=== PATIENT | female | born 1990 | race Caucasian/White ===

== ENCOUNTER 2016-11-17 03:58 | Emergency (ER) | payer BC, OTHER ==
[2016-11-17 04:07] VITALS: BP 119/88; PULSE 83; RESP 16; TEMP 98.1
[2016-11-17] MEDS ORDERED: SODIUM CHLORIDE 0.9% 1,000 ML IV STA ×2 (04:19)
[2016-11-17] MEDS ORDERED: ONDANSETRON 4 MG/2 ML VIAL IVP STA (04:20)
--- NOTE | 2016-11-17 04:22 | ED ---
SOB HPI - General Chief Complaint: Shortness of Breath Stated Complaint: vomiting,back pain Time Seen by Provider: 11/17/16 04:04 Source: patient, family, RN notes reviewed Mode of arrival: ambulatory Limitations: no limitations - History of Present Illness Initial Comments: This is a 26-year-old female with a history of anxiety states she woke up around 1 AM with nausea vomiting shortness of breath and right CVA area pain. She also states she has some pain over the right side of her orthodox she states she's thrown up at least 10 times she also states she's been urinating a lot since he got up. She does states she was also here couple weeks ago for anxiety. She denies any fevers chills or sweats she denies any chance of . She is a smoker I did counseling case manager her on the risks of smoking and the side effects thereof. MD Complaint: shortness of breath, anxiety - Related Data Previous Rx's Medication Instructions Recorded LORazepam [Ativan] 0.5 mg PO TID PRN #15 tab 06/12/16 Meclizine [Antivert] 25 mg PO TID #30 tab 11/04/16 Ondansetron Odt [Zofran Odt] 4 mg PO Q8HR PRN #7 tab 11/17/16 Allergies Allergy/AdvReac Type Severity Reaction Status Date / Time No Known Allergies Allergy Verified 11/17/16 04:06 Review of Systems ROS Statement: Those systems with pertinent positive or pertinent negative responses have been documented in the HPI. ROS Other: All systems not noted in ROS Statement are negative. Past Medical History Past Medical History: No Reported History History of Any Multi-Drug Resistant Organisms: None Reported Past Surgical History: Appendectomy Past Psychological History: No Psychological Hx Reported Smoking Status: Current every day smoker Past Alcohol Use History: Rare Past Drug Use History: Marijuana General Exam - General Exam Comments Initial Comments: This is a well-developed well-nourished awake alert oriented 3 female Limitations: no limitations General appearance: alert, anxious Head exam: Present: atraumatic, normocephalic, normal inspection Eye exam: Present: normal appearance, PERRL, EOMI. Absent: scleral icterus, conjunctival injection, periorbital swelling ENT exam: Present: mucous membranes dry Neck exam: Present: normal inspection. Absent: tenderness, meningismus, lymphadenopathy Respiratory exam: Present: normal lung sounds bilaterally. Absent: respiratory distress, wheezes, rales, rhonchi, stridor Cardiovascular Exam: Present: regular rate, normal rhythm, normal heart sounds. Absent: systolic murmur, diastolic murmur, rubs, gallop, clicks GI/Abdominal exam: Present: soft, normal bowel sounds. Absent: distended, tenderness, guarding, rebound, rigid Extremities exam: Present: normal inspection, full ROM, normal capillary refill. Absent: tenderness, pedal edema, joint swelling, calf tenderness Back exam: Present: normal inspection Neurological exam: Present: alert, oriented X3, CN II-XII intact Psychiatric exam: Present: normal affect, normal mood Skin exam: Present: warm, dry, intact, normal color. Absent: rash Course Vital Signs 11/17/16 04:00 Temperature 98.1 F Pulse Rate 83 Respiratory 16 Rate Blood Pressure 119/88 O2 Sat by Pulse 99 Oximetry Medical Decision Making - Medical Decision Making The patient currently asymptomatic and will be discharged. - Lab Data Result diagrams: 11/17/16 04:30 11/17/16 04:30 Lab Results 11/17/16 11/17/16 11/17/16 Range/Units 04:20 04:20 04:30 WBC (3.8-10.6) k/uL RBC (3.80-5.40) m/uL Hgb (11.4-16.0) gm/dL Hct (34.0-46.0) % MCV (80.0-100.0) fL MCH (25.0-35.0) pg MCHC (31.0-37.0) g/dL RDW (11.5-15.5) % Plt Count (150-450) k/uL Neutrophils % % Lymphocytes % % Monocytes % % Eosinophils % % Basophils % % Neutrophils # (1.3-7.7) k/uL Lymphocytes # (1.0-4.8) k/uL Monocytes # (0-1.0) k/uL Eosinophils # (0-0.7) k/uL Basophils # (0-0.2) k/uL PT (9.0-12.0) sec INR (<1.1) APTT (22.0-30.0) sec Sodium (137-145) mmol/L Potassium (3.5-5.1) mmol/L Chloride (98-107) mmol/L Carbon Dioxide (22-30) mmol/L Anion Gap mmol/L BUN (7-17) mg/dL Creatinine (0.52-1.04) mg/dL Est GFR (MDRD) Af Amer (>60 ml/min/1.73 sqM) Est GFR (MDRD) Non-Af (>60 ml/min/1.73 sqM) Glucose (74-99) mg/dL Calcium (8.4-10.2) mg/dL Magnesium (1.6-2.3) mg/dL Total Bilirubin (0.2-1.3) mg/dL AST (14-36) U/L ALT (9-52) U/L Alkaline Phosphatase (38-126) U/L Total Creatine Kinase 72 (30-135) U/L CK-MB (CK-2) 0.4 (0.0-2.4) ng/mL CK-MB (CK-2) Rel Index 0.6 Troponin I <0.012 (0.000-0.034) ng/mL Total Protein (6.3-8.2) g/dL Albumin (3.5-5.0) g/dL Urine Color Light Yellow Urine Appearance Cloudy H (Clear) Urine pH 7.5 (5.0-8.0) Ur Specific [place] 1.006 (1.001-1.035) Urine Protein Negative (Negative) Urine Glucose (UA) Negative (Negative) Urine Ketones Negative (Negative) Urine Blood Negative (Negative) Urine Nitrate Negative (Negative) Urine Bilirubin Negative (Negative) Urine Urobilinogen <2.0 (<2.0) mg/dL Ur Leukocyte Esterase Small H (Negative) Urine RBC <1 (0-5) /hpf Urine WBC 10 H (0-5) /hpf Ur Squamous Epith Cells 5 H (0-4) /hpf Urine Bacteria Rare H (None) /hpf Urine HCG, Qual Not Detected (Not Detectd) 11/17/16 11/17/16 11/17/16 Range/Units 04:30 04:30 04:30 WBC 6.8 (3.8-10.6) k/uL RBC 4.74 (3.80-5.40) m/uL Hgb 14.8 (11.4-16.0) gm/dL Hct 42.2 (34.0-46.0) % MCV 88.9 (80.0-100.0) fL MCH 31.1 (25.0-35.0) pg MCHC 35.0 (31.0-37.0) g/dL RDW 12.1 (11.5-15.5) % Plt Count 296 (150-450) k/uL Neutrophils % 68 % Lymphocytes % 23 % Monocytes % 5 % Eosinophils % 1 % Basophils % 1 % Neutrophils # 4.6 (1.3-7.7) k/uL Lymphocytes # 1.6 (1.0-4.8) k/uL Monocytes # 0.3 (0-1.0) k/uL Eosinophils # 0.1 (0-0.7) k/uL Basophils # 0.0 (0-0.2) k/uL PT 11.3 (9.0-12.0) sec INR 1.1 (<1.1) APTT 25.0 (22.0-30.0) sec Sodium 143 (137-145) mmol/L Potassium 4.2 (3.5-5.1) mmol/L Chloride 104 (98-107) mmol/L Carbon Dioxide 27 (22-30) mmol/L Anion Gap 12 mmol/L BUN 13 (7-17) mg/dL Creatinine 0.60 (0.52-1.04) mg/dL Est GFR (MDRD) Af Amer >60 (>60 ml/min/1.73 sqM) Est GFR (MDRD) Non-Af >60 (>60 ml/min/1.73 sqM) Glucose 101 H (74-99) mg/dL Calcium 9.8 (8.4-10.2) mg/dL Magnesium 2.0 (1.6-2.3) mg/dL Total Bilirubin 0.5 (0.2-1.3) mg/dL AST 21 (14-36) U/L ALT 35 (9-52) U/L Alkaline Phosphatase 43 (38-126) U/L Total Creatine Kinase (30-135) U/L CK-MB (CK-2) (0.0-2.4) ng/mL CK-MB (CK-2) Rel Index Troponin I (0.000-0.034) ng/mL Total Protein 7.5 (6.3-8.2) g/dL Albumin 4.8 (3.5-5.0) g/dL Urine Color Urine Appearance (Clear) Urine pH (5.0-8.0) Ur Specific [place] (1.001-1.035) Urine Protein (Negative) Urine Glucose (UA) (Negative) Urine Ketones (Negative) Urine Blood (Negative) Urine Nitrate (Negative) Urine Bilirubin (Negative) Urine Urobilinogen (<2.0) mg/dL Ur Leukocyte Esterase (Negative) Urine RBC (0-5) /hpf Urine WBC (0-5) /hpf Ur Squamous Epith Cells (0-4) /hpf Urine Bacteria (None) /hpf Urine HCG, Qual (Not Detectd) - EKG Data -: EKG Interpreted by Me EKG shows normal: sinus rhythm, axis, intervals (Normal sinus rhythm a rate of 65. Interval 164 QRS duration 100 QT/QTC of 392/[address]-T wave changes.) , QRS complexes, ST-T waves Rate: normal - Radiology Data Radiology results: report reviewed (I did review the x-ray report no acute findings.), image reviewed Disposition Clinical Impression: Acute gastritis Disposition: HOME SELF-CARE Condition: Good Instructions: Gastritis (ED) Prescriptions: Ondansetron Odt [Zofran Odt] 4 mg PO Q8HR PRN #7 tab PRN Reason: Nausea
[2016-11-17 05:02] LABS: Basophils % (A) 1 %; CH 32.3; CHCM 36.5; Eosinophils # (A) 0.1 k/uL (0-0.7); Eosinophils % (A) 1 %; HCT 42.2 % (34.0-46.0); HGB 14.8 gm/dL (11.4-16.0); Luc # (Auto) 0.15; Luc % (Auto) 2; Lymphocytes # (A) 1.6 k/uL (1.0-4.8); Lymphocytes % (A) 23 %; MCH 31.1 pg (25.0-35.0); MCV 88.9 fL (80.0-100.0); Monocytes # (A) 0.3 k/uL (0-1.0); Monocytes % (A) 5 %; Neutrophils # (A) 4.6 k/uL (1.3-7.7); Neutrophils % (A) 68 %; RBC 4.74 m/uL (3.80-5.40); RDW 12.1 % (11.5-15.5); WBC 6.8 k/uL (3.8-10.6); WBC (Perox) 6.72
[2016-11-17 05:02] LABS: Appearance,Urine Cloudy (Clear); Bacteria,Urine Rare /hpf; Bilirubin,Urine Negative (Negative); Glucose,Urine (UA) Negative (Negative); Ketones,Urine Negative (Negative); Leukocyte Esterase,Urine Small (Negative); Nitrite,Urine Negative (Negative); PH, Urine 7.5 (5.0-8.0); Particle Count 2053; Protein,Urine Negative (Negative); RBC,Urine <1 /hpf (0-5); Specific Gravity,Urine 1.006 (1.001-1.035); Squamous Epithelial Cell,Urine 5 /hpf (0-4); UA Billing (MACRO vs. MICRO) MICRO; Urobilinogen,Urine <2.0 mg/dL (<2.0); WBC,Urine 10 /hpf (0-5)
[2016-11-17 05:09] LABS: ALT 35 U/L (9-52); AST 21 U/L (14-36); Alkaline Phosphatase 43 U/L (38-126); Anion Gap 12 mmol/L; Blood Urea Nitrogen 13 mg/dL (7-17); Calcium 9.8 mg/dL (8.4-10.2); Carbon Dioxide 27 mmol/L (22-30); Chloride 104 mmol/L (98-107); Glucose 101 mg/dL (74-99); INR 1.1 (<1.1); Non-African American GFR(MDRD) >60 (>60 ml/min/1.73 sqM); Potassium 4.2 mmol/L (3.5-5.1); Prothrombin Time 11.3 sec (9.0-12.0); Sodium 143 mmol/L (137-145); Total Bilirubin 0.5 mg/dL (0.2-1.3); Total Protein 7.5 g/dL (6.3-8.2)
[2016-11-17 05:22] LABS: Creatine Kinase 72 U/L (30-135)
[2016-11-17 05:36] LABS: Creatine Kinase MB 0.4 ng/mL (0.0-2.4); Troponin I <0.012 ng/mL (0.000-0.034)
--- NOTE | 2016-11-17 05:40 | XR ---
EXAMINATION TYPE: XR chest 2V DATE OF EXAM: 11/17/2016 5:10 AM COMPARISON: 06/12/2016 HISTORY: Difficulty breathing TECHNIQUE: Frontal and lateral views of the chest are obtained. FINDINGS: Heart and mediastinum are normal. Lungs are clear. Diaphragm is normal. Bony thorax is int act. There is no sign of a pneumothorax. IMPRESSION: Normal chest no change.
== END 2016-11-17 06:02 | disposition home or self-care (01) ==
LOC: EC 03:58
DX: K29.00 Acute gastritis without bleeding (principal); R11.2 Nausea with vomiting, unspecified; F41.9 Anxiety disorder, unspecified; R06.02 Shortness of breath; F17.200 Nicotine dependence, unspecified, uncomplicated
CPT/HCPCS: 99285; 96374; 96361; 36415; 93005; 80053; 82550; 82553; 83735; 84484; 85025; 85610; 85730; 81001; 81025; 71020; J2405

== ENCOUNTER 2017-01-12 19:26 | Emergency (ER) | payer BC, OTHER ==
--- NOTE | 2017-01-12 19:50 | ED ---
Female Urogenital HPI - General Chief complaint: Urogenital Stated complaint: Female Time Seen by Provider: 01/12/17 19:39 Source: patient, RN notes reviewed, old records reviewed Mode of arrival: ambulatory Limitations: no limitations - History of Present Illness Initial comments: Patient is a 26-year-old female with chief complaint of lower pelvic pain starting approximately 45 minutes ago. Patient reports that she was having sexual intercourse with her boyfriend. Patient reports that soon as he started to have intercourse she noticed a sharp pain in her vagina and feels like it is radiating towards her rectum. She denies any anal intercourse or insertion of foreign bodies. Patient reports that she's never had a pain like this before. Patient reports it is difficult for her to urinate. She states earlier today she did notice some white milky discharge which is abnormal for her. Patient states that she's had normal bowel movements and denies any constipation. She states that she feels a lower cramping pain. She denies any blood or sensation of tearing. Last Menstrual Period: 12/14/16 - Related Data Home Medications Medication Instructions Recorded Confirmed Penicillin V Potassium [Pen Vee K] 500 mg PO QID 01/12/17 01/12/17 Allergies Allergy/AdvReac Type Severity Reaction Status Date / Time No Known Allergies Allergy Verified 01/12/17 19:56 Review of Systems ROS Statement: Those systems with pertinent positive or pertinent negative responses have been documented in the HPI. ROS Other: All systems not noted in ROS Statement are negative. Past Medical History Past Medical History: No Reported History Additional Past Medical History / Comment(s): HPV + with precancerous cells. History of Any Multi-Drug Resistant Organisms: None Reported Past Surgical History: Appendectomy Past Psychological History: No Psychological Hx Reported Smoking Status: Current every day smoker Past Alcohol Use History: Rare Past Drug Use History: Marijuana General Exam - General Exam Comments Initial Comments: Patient is a 26-year-old female. Patient does not appear to be in any acute distress. Limitations: no limitations General appearance: alert, in no apparent distress Head exam: Present: atraumatic, normocephalic, normal inspection Eye exam: Present: normal appearance, PERRL, EOMI. Absent: scleral icterus, conjunctival injection, periorbital swelling ENT exam: Present: normal exam, normal oropharynx, mucous membranes moist, TM's normal bilaterally Neck exam: Present: normal inspection. Absent: tenderness, meningismus, lymphadenopathy Respiratory exam: Present: normal lung sounds bilaterally. Absent: respiratory distress, wheezes, rales, rhonchi, stridor Cardiovascular Exam: Present: regular rate, normal rhythm, normal heart sounds. Absent: systolic murmur, diastolic murmur, rubs, gallop, clicks GI/Abdominal exam: Present: soft, normal bowel sounds. Absent: distended, tenderness, guarding, rebound, rigid Rectal exam: Present: normal inspection, normal rectal tone. Absent: decreased rectal tone, heme (-) stool, heme (+) stool, black stool, bloody stool, fecal impaction, hemorrhoids External exam: Present: normal external exam Speculum exam: Present: normal speculum exam, vaginal discharge (Scant white vaginal discharge.), cervical discharge. Absent: vaginal bleeding, foreign body , tissue, laceration, other By manual exam: Present: cervical motion tenderness. Absent: normal by manual exam, adnexal tenderness, adnexal mass, uterine enlargement, uterine tenderness Extremities exam: Present: normal inspection, full ROM, normal capillary refill. Absent: tenderness, pedal edema, joint swelling, calf tenderness Back exam: Present: normal inspection Neurological exam: Present: alert, oriented X3, CN II-XII intact Psychiatric exam: Present: normal affect, normal mood Skin exam: Present: warm, dry, intact, normal color. Absent: rash Course Vital Signs 01/12/17 01/12/17 01/12/17 19:31 21:06 22:42 Temperature 97.8 F 98.1 F Pulse Rate 104 H 81 74 Respiratory 18 16 16 Rate Blood Pressure 143/90 128/76 121/69 O2 Sat by Pulse 99 97 97 Oximetry Medical Decision Making - Medical Decision Making Patient is a 26-year-old female chief complaint of a acute onset of lower pelvic pain while having intercourse a proximally 45 minutes prior to arrival. She states that if he leaves difficult for her to urinate. She states that there is some burning with urination. She reports that she did have some scant white vaginal discharge earlier today which is abnormal for her. She reports there is a possibility of sexually transmitted infection. Patient's REMARKETING REP is Dr. Barrientos. Patient's vaginal exam did show some significant white discharge. Patient will be treated with Rocephin and azithromycin. Patient advised that she will be contacted in 48 hours if this is positive. Patient was significantly tender over the cervix. I will order a transvaginal ultrasound to ensure is no evidence of ovarian torsion or cyst. Ultrasound did show evidence of left ovarian cysts and right sided ovarian follicles. No evidence of ovarian torsion. Patient did have a small amount of free fluid within the pelvis. Is likely the patient could've ruptured a cyst. Patient was given an IM Toradol and a starter pack for Tylenol 3 for pain. She reports that she's feeling much better at this time. I did discuss that she has been treated for some transmitted infection and to avoid sexual intercourse and the next 2 weeks. 2 Vicryl sexual partners to be treated as well. Patient understands treatment plan will comply. Return parameters were discussed. - Lab Data Lab Results 01/12/17 01/12/17 01/12/17 Range/Units 19:50 19:50 20:10 Urine Color Yellow Urine Appearance Turbid H (Clear) Urine pH 8.5 H (5.0-8.0) Ur Specific [place] 1.016 (1.001-1.035) Urine Protein Trace H (Negative) Urine Glucose (UA) Negative (Negative) Urine Ketones Negative (Negative) Urine Blood Negative (Negative) Urine Nitrate Negative (Negative) Urine Bilirubin Negative (Negative) Urine Urobilinogen 3.0 (<2.0) mg/dL Ur Leukocyte Esterase Small H (Negative) Urine WBC 5 (0-5) /hpf Ur Squamous Epith Cells 15 H (0-4) /hpf Amorphous Sediment Moderate H (None) /hpf Urine Mucus Rare H (None) /hpf Urine HCG, Qual Not Detected (Not Detectd) Trichomonas Ag (Rapid) Negative (Negative) - Radiology Data Radiology results: report reviewed Functional left ovarian cyst. The small right ovarian follicles. Small amount of free fluid. No evidence for torsion. Disposition Clinical Impression: Pelvic pain, Left ovarian cyst, Vaginal discharge Disposition: HOME SELF-CARE Condition: Good Instructions: Ovarian Cyst (ED), Vaginal Discharge (ED) Additional Instructions: Patient advised follow-up with REMARKETING REP. Return to emergency department if any alarming signs or symptoms occur. Take Motrin Tylenol for pain. Yet Referrals: Raven Ryan MD [Primary Care Provider] - 1-2 days Florencio Ye DO [Doctor of Osteopathic Medicine] - 1-2 days Time of Disposition: 22:20
[2017-01-12] MEDS ORDERED: KETOROLAC 60 MG/2 ML VIAL IM STA (20:07)
[2017-01-12] MEDS ORDERED: ACET/COD 300 MG/30 MG STARTER PACK 6 TAB BTL PO STA (20:08)
[2017-01-12] MEDS ORDERED: AZITHROMYCIN 500 MG TAB PO STA (20:10)
[2017-01-12] MEDS ORDERED: cefTRIAXone 1,000 MG VIAL (IM USE) IM STA (20:16)
[2017-01-12 21:07] VITALS: RESP 16
--- NOTE | 2017-01-12 21:49 | US ---
EXAMINATION TYPE: US transvaginal DATE OF EXAM: 01/12/2017 9:19 PM COMPARISON: NONE CLINICAL HISTORY: Pain. postcoidal pain TECHNIQUE: Transvaginal (TV) Date of LMP: 12/14/2016, EXAM MEASUREMENTS: Uterus: 9.5 x 5.7 x 5.1 cm Endometrial Stripe: 1.0 cm Right Ovary: 3.4 x 2.2 x 1.9 cm Left Ovary: 4.4 x 3.5 x 2.9 cm Findings: 1. Uterus: Anteverted wnl 2. Endometrium: wnl 3. Right Ovary: follicles 4. Left Ovary: corpus luteum = 3.0 x 2.7 x 1.8 cm Spectral, color and waveform doppler imaging shows good arterial and venous flow within the ovaries ; there is no evidence for ovarian torsion. 5. Bilateral Adnexa: wnl 6. Posterior cul-de-sac: free fluid Cervix- wnl IMPRESSION: Functional left ovarian cyst. Small right ovarian follicles. Small amount of free fluid. No evidence for torsion.
[2017-01-12 22:11] LABS: Amorphous Sediment,Urine Moderate /hpf; Appearance,Urine Turbid (Clear); Bilirubin,Urine Negative (Negative); Glucose,Urine (UA) Negative (Negative); Ketones,Urine Negative (Negative); Leukocyte Esterase,Urine Small (Negative); Mucus,Urine Rare /hpf; Nitrite,Urine Negative (Negative); PH, Urine 8.5 (5.0-8.0); Particle Count 21650; Protein,Urine Trace (Negative); Specific Gravity,Urine 1.016 (1.001-1.035); Squamous Epithelial Cell,Urine 15 /hpf (0-4); UA Billing (MACRO vs. MICRO) MICRO; WBC,Urine 5 /hpf (0-5)
[2017-01-12 22:43] VITALS: BP 121/69; PULSE 74; TEMP 98.1
[2017-01-14 12:14] LABS: Chlamydia/GC Source Vaginal
== END 2017-01-12 22:42 | disposition home or self-care (01) ==
LOC: EC 19:26
DX: N83.202 Unspecified ovarian cyst, left side (principal); N89.8 Other specified noninflammatory disorders of vagina; R30.0 Dysuria; F17.200 Nicotine dependence, unspecified, uncomplicated
CPT/HCPCS: 87591; 87491; 81001; 81025; 87808; 87070; 87086; 87205; 76830; 96372; 99284; J0696; J1885

== ENCOUNTER 2017-10-07 13:25 | Emergency (ER) | payer BC, OTHER ==
[2017-10-07 13:38] VITALS: RESP 18
[2017-10-07] MEDS ORDERED: ALPRAZolam 0.25 MG TAB PO STA (14:21)
[2017-10-07] MEDS ORDERED: SODIUM CHLORIDE 0.9% 1,000 ML IV ONE (14:21)
--- NOTE | 2017-10-07 14:39 | ED ---
General Adult HPI - General Chief complaint: Neuro Symptoms/Deficit Stated complaint: Rt sided numbness Time Seen by Provider: 10/07/17 13:57 Source: patient Mode of arrival: ambulatory Limitations: no limitations - History of Present Illness Initial comments: patient is a 27-year-old female presents with a chief complaint of right arm tingling and lip tingling. Patient states that the onset was 2 hours ago when she was washing dishes in her kitchen. Patient cannot think of any inciting incidences. There are no aggravating or alleviating factors. Timing is constant. The patient states that her symptomatology has not changed since onset. The patient does not have a notable past medical history. She states that she has had anxiety before but never like this. She also states that there is nothing that would make her more anxious today. - Related Data Previous Rx's Medication Instructions Recorded Cyclobenzaprine [Flexeril] 10 mg PO TID #10 tab 10/07/17 Allergies Allergy/AdvReac Type Severity Reaction Status Date / Time No Known Allergies Allergy Verified 10/07/17 13:42 Review of Systems ROS Statement: Those systems with pertinent positive or pertinent negative responses have been documented in the HPI. ROS Other: All systems not noted in ROS Statement are negative. Constitutional: Denies: fever, chills Eyes: Denies: vision change ENT: Denies: ear pain, throat pain Respiratory: Denies: dyspnea Cardiovascular: Denies: chest pain Endocrine: Denies: fatigue Gastrointestinal: Denies: abdominal pain, nausea, vomiting Genitourinary: Denies: dysuria Musculoskeletal: Denies: back pain Skin: Denies: rash, lesions Neurological: Reports: paresthesias Past Medical History Past Medical History: No Reported History Additional Past Medical History / Comment(s): HPV + with precancerous cells. History of Any Multi-Drug Resistant Organisms: None Reported Past Surgical History: Appendectomy Past Psychological History: No Psychological Hx Reported Smoking Status: Current every day smoker Past Alcohol Use History: Rare Past Drug Use History: None Reported General Exam Limitations: no limitations General appearance: alert, in no apparent distress Head exam: Present: atraumatic, normocephalic Eye exam: Present: PERRL, EOMI. Absent: scleral icterus ENT exam: Present: normal oropharynx, mucous membranes moist Neck exam: Present: normal inspection. Absent: tenderness, meningismus Respiratory exam: Present: normal lung sounds bilaterally Cardiovascular Exam: Present: regular rate, normal rhythm GI/Abdominal exam: Present: soft. Absent: distended, tenderness Rectal exam: Present: deferred Extremities exam: Present: normal inspection, full ROM, other (patient has subjective tingling of the right upper extremity. pulses are equal bilaterally) . Absent: tenderness Back exam: Present: normal inspection Neurological exam: Present: alert, oriented X3, CN II-XII intact, normal gait, motor sensory deficit (patient is somewhat weaker with scientific programmer strength on the right arm, elbow flexion and extension are 5 out of 5 strength.) Psychiatric exam: Present: normal affect, normal mood Skin exam: Present: warm, dry, intact Course Vital Signs 10/07/17 13:35 Temperature 97.6 F Pulse Rate 88 Respiratory 18 Rate Blood Pressure 133/81 O2 Sat by Pulse 99 Oximetry Medical Decision Making - Medical Decision Making patient presents with a chief complaint of right upper extremity tingling and perioral tingling. On initial evaluation, patient appears comfortable and stable. Vital signs are within normal limits. Patient's neurologic exam is nonfocal except for mild strength decreased on the right hand. Strength testing of the upper extremities otherwise is equal and symmetric bilaterally. Patient does not have any cerebellar dysfunction. Romberg is negative, rapid alternating motion is negative. At this time, etiology such as stroke seem to be much less likely. We'll check basic labs to rule out any electrolyte abnormalities, infectious process. We'll send a serum test. 3:29 PM Lab evaluation this patient is unremarkable. Urinalysis did not show any evidence of infection. test is negative. A letter was appeared within normal limits. On reevaluation, patient states that she is still having some tingling in her right arm. Repeat neuro examination shows improved scientific programmer strength in the right hand. Strength is now equal bilaterally. I discussed the results and findings with the patient. I discussed she needs follow-up with her primary care physician or return to the emergency department if symptoms worsen or change. She was given exposed signs and symptoms that should prompt return visit to the emergency department. Patient is agreeable with current care plan - Lab Data Result diagrams: 10/07/17 14:45 10/07/17 14:45 Lab Results 10/07/17 10/07/17 10/07/17 Range/Units 14:45 14:45 14:45 WBC 8.3 (3.8-10.6) k/uL RBC 5.16 (3.80-5.40) m/uL Hgb 15.6 (11.4-16.0) gm/dL Hct 45.8 (34.0-46.0) % MCV 88.7 (80.0-100.0) fL MCH 30.3 (25.0-35.0) pg MCHC 34.1 (31.0-37.0) g/dL RDW 13.6 (11.5-15.5) % Plt Count 249 (150-450) k/uL Neutrophils % 77 % Lymphocytes % 15 % Monocytes % 5 % Eosinophils % 1 % Basophils % 0 % Neutrophils # 6.4 (1.3-7.7) k/uL Lymphocytes # 1.3 (1.0-4.8) k/uL Monocytes # 0.4 (0-1.0) k/uL Eosinophils # 0.1 (0-0.7) k/uL Basophils # 0.0 (0-0.2) k/uL Sodium 140 (137-145) mmol/L Potassium 4.2 (3.5-5.1) mmol/L Chloride 105 (98-107) mmol/L Carbon Dioxide 23 (22-30) mmol/L Anion Gap 12 mmol/L BUN 13 (7-17) mg/dL Creatinine 0.65 (0.52-1.04) mg/dL Est GFR (MDRD) Af Amer >60 (>60 ml/min/1.73 sqM) Est GFR (MDRD) Non-Af >60 (>60 ml/min/1.73 sqM) Glucose 89 (74-99) mg/dL Calcium 9.8 (8.4-10.2) mg/dL HCG, Qual Not Detected Urine Color Light Yellow Urine Appearance Clear (Clear) Urine pH 5.0 (5.0-8.0) Ur Specific [place] 1.006 (1.001-1.035) Urine Protein Negative (Negative) Urine Glucose (UA) Negative (Negative) Urine Ketones Negative (Negative) Urine Blood Negative (Negative) Urine Nitrite Negative (Negative) Urine Bilirubin Negative (Negative) Urine Urobilinogen <2.0 (<2.0) mg/dL Ur Leukocyte Esterase Trace H (Negative) Urine RBC 1 (0-5) /hpf Urine WBC 2 (0-5) /hpf Ur Squamous Epith Cells 1 (0-4) /hpf Urine Bacteria Rare H (None) /hpf Disposition Clinical Impression: Paresthesia Disposition: HOME SELF-CARE Condition: Good Instructions: Paresthesia (ED) Referrals: Raven Ryan MD [Primary Care Provider] - 1-2 days
[2017-10-07 15:03] LABS: Appearance,Urine Clear (Clear); Bacteria,Urine Rare /hpf; Bilirubin,Urine Negative (Negative); Glucose,Urine (UA) Negative (Negative); Ketones,Urine Negative (Negative); Leukocyte Esterase,Urine Trace (Negative); Nitrite,Urine Negative (Negative); Particle Count 1621; Protein,Urine Negative (Negative); RBC,Urine 1 /hpf (0-5); Specific Gravity,Urine 1.006 (1.001-1.035); Squamous Epithelial Cell,Urine 1 /hpf (0-4); UA Billing (MACRO vs. MICRO) MICRO; Urobilinogen,Urine <2.0 mg/dL (<2.0); WBC,Urine 2 /hpf (0-5)
[2017-10-07 15:07] LABS: HCG,Qualitative Serum Not Detected
[2017-10-07 15:09] LABS: Anion Gap 12 mmol/L; Basophils % (A) 0 %; Blood Urea Nitrogen 13 mg/dL (7-17); CH 31.2; CHCM 35.3; Calcium 9.8 mg/dL (8.4-10.2); Carbon Dioxide 23 mmol/L (22-30); Chloride 105 mmol/L (98-107); Eosinophils # (A) 0.1 k/uL (0-0.7); Eosinophils % (A) 1 %; Glucose 89 mg/dL (74-99); HCT 45.8 % (34.0-46.0); HDW 2.63; HGB 15.6 gm/dL (11.4-16.0); Luc # (Auto) 0.12; Luc % (Auto) 2; Lymphocytes # (A) 1.3 k/uL (1.0-4.8); Lymphocytes % (A) 15 %; MCH 30.3 pg (25.0-35.0); MCHC 34.1 g/dL (31.0-37.0); MCV 88.7 fL (80.0-100.0); Mean Platelet Volume 7.9; Monocytes # (A) 0.4 k/uL (0-1.0); Monocytes % (A) 5 %; Neutrophils # (A) 6.4 k/uL (1.3-7.7); Neutrophils % (A) 77 %; Non-African American GFR(MDRD) >60 (>60 ml/min/1.73 sqM); Potassium 4.2 mmol/L (3.5-5.1); RBC 5.16 m/uL (3.80-5.40); RDW 13.6 % (11.5-15.5); Sodium 140 mmol/L (137-145); WBC 8.3 k/uL (3.8-10.6)
[2017-10-07 15:45] VITALS: BP 126/77; PULSE 78; TEMP 98.1
== END 2017-10-07 15:46 | disposition home or self-care (01) ==
LOC: EC 13:25
DX: R20.2 Paresthesia of skin (principal); R53.1 Weakness; F17.200 Nicotine dependence, unspecified, uncomplicated
CPT/HCPCS: 36415; 80048; 81001; 84703; 85025; 96360; 99284

== ENCOUNTER 2019-05-31 14:05 | Emergency (ER) | payer OTHER ==
[2019-05-31 14:18] VITALS: RESP 18
[2019-05-31] MEDS ORDERED: ONDANSETRON 4 MG/2 ML VIAL IVP STA (15:02)
[2019-05-31] MEDS ORDERED: SODIUM CHLORIDE 0.9% 1,000 ML IV STA (15:02)
--- NOTE | 2019-05-31 15:08 | ED ---
Neuro HPI - General Chief Complaint: Neuro Symptoms/Deficit Stated Complaint: Head Pain, Nausea Time Seen by Provider: 05/31/19 14:30 Source: patient, RN notes reviewed, old records reviewed Mode of arrival: ambulatory Limitations: no limitations - History of Present Illness Is the patient presenting with stroke symptoms?: No Last Known Well Date: 05/31/19 Last Known Well Time: 09:59 -: hour(s) Initial Comments: This is a 29-year-old female the ER for evaluation presents today for headache, patient also states occasional episodes of blurry vision nausea vomiting denies no history of headache and migraine. History of trauma. Patient sta yamila she does not feel well feels sick to sick to her stomach she says she does admit to increased stress in her life denies drugs or alcohol. Location: other (Headache) History of same: Yes (Occasional just not as severe) Place: home Severity: mild Quality: numb, tingling Improves With: none Worsens With: none On Anticoagulants: Yes Associated Symptoms: nausea/vomiting Treatments Prior to Arrival: none - Related Data Home Medications: Home Medications Medication Instructions Recorded Confirmed No Known Home Medications 05/31/19 05/31/19 Allergies/Adverse Reactions: Allergies Allergy/AdvReac Type Severity Reaction Status Date / Time No Known Allergies Allergy Verified 05/31/19 14:31 Review of Systems ROS Statement: Those systems with pertinent positive or pertinent negative responses have been documented in the HPI. ROS Other: All systems not noted in ROS Statement are negative. General Exam Limitations: no limitations General appearance: alert, in no apparent distress Head exam: Present: atraumatic, normocephalic, normal inspection Eye exam: Present: normal appearance, PERRL, EOMI. Absent: scleral icterus, conjunctival injection, periorbital swelling ENT exam: Present: normal exam, mucous membranes moist Neck exam: Present: normal inspection. Absent: tenderness, meningismus, lymphadenopathy Respiratory exam: Present: normal lung sounds bilaterally. Absent: respiratory distress, wheezes, rales, rhonchi, stridor Cardiovascular Exam: Present: regular rate, normal rhythm, normal heart sounds. Absent: systolic murmur, diastolic murmur, rubs, gallop, clicks GI/Abdominal exam: Present: soft, normal bowel sounds. Absent: distended, tenderness, guarding, rebound, rigid Extremities exam: Present: normal inspection, full ROM, normal capillary refill. Absent: tenderness, pedal edema, joint swelling, calf tenderness Back exam: Present: normal inspection Neurological exam: Present: alert, oriented X3, CN II-XII intact Psychiatric exam: Present: normal affect, normal mood Skin exam: Present: warm, dry, intact, normal color. Absent: rash Stroke MDM - Lab Data Result diagrams: 05/31/19 14:45 05/31/19 14:45 Lab Results 05/31/19 05/31/19 05/31/19 Range/Units 14:45 14:45 14:45 WBC 8.1 (3.8-10.6) k/uL RBC 4.59 (3.80-5.40) m/uL Hgb 13.7 (11.4-16.0) gm/dL Hct 40.0 (34.0-46.0) % MCV 87.1 (80.0-100.0) fL MCH 29.9 (25.0-35.0) pg MCHC 34.3 (31.0-37.0) g/dL RDW 13.5 (11.5-15.5) % Plt Count 203 (150-450) k/uL Neutrophils % 83 % Lymphocytes % 11 % Monocytes % 3 % Eosinophils % 1 % Basophils % 1 % Neutrophils # 6.7 (1.3-7.7) k/uL Lymphocytes # 0.9 L (1.0-4.8) k/uL Monocytes # 0.3 (0-1.0) k/uL Eosinophils # 0.1 (0-0.7) k/uL Basophils # 0.0 (0-0.2) k/uL PT 12.1 H (9.0-12.0) sec INR 1.2 H (<1.2) APTT 26.5 (22.0-30.0) sec Sodium 140 (137-145) mmol/L Potassium 4.0 (3.5-5.1) mmol/L Chloride 105 (98-107) mmol/L Carbon Dioxide 27 (22-30) mmol/L Anion Gap 8 mmol/L BUN 10 (7-17) mg/dL Creatinine 0.63 (0.52-1.04) mg/dL Est GFR (CKD-EPI)AfAm >90 (>60 ml/min/1.73 sqM) Est GFR (CKD-EPI)NonAf >90 (>60 ml/min/1.73 sqM) Glucose 93 (74-99) mg/dL Calcium 9.2 (8.4-10.2) mg/dL Phosphorus 3.1 (2.5-4.5) mg/dL Magnesium 1.8 (1.6-2.3) mg/dL Total Bilirubin 0.4 (0.2-1.3) mg/dL AST 19 (14-36) U/L ALT 17 (9-52) U/L Alkaline Phosphatase 48 (38-126) U/L Creatine Kinase 54 (30-135) U/L Troponin I (0.000-0.034) ng/mL Total Protein 7.1 (6.3-8.2) g/dL Albumin 4.4 (3.5-5.0) g/dL TSH 0.863 (0.465-4.680) mIU/L Urine Color Urine Appearance (Clear) Urine pH (5.0-8.0) Ur Specific [place] (1.001-1.035) Urine Protein (Negative) Urine Glucose (UA) (Negative) Urine Ketones (Negative) Urine Blood (Negative) Urine Nitrite (Negative) Urine Bilirubin (Negative) Urine Urobilinogen (<2.0) mg/dL Ur Leukocyte Esterase (Negative) Ur Squamous Epith Cells (0-4) /hpf Urine Mucus (None) /hpf 05/31/19 05/31/19 Range/Units 14:45 14:45 WBC (3.8-10.6) k/uL RBC (3.80-5.40) m/uL Hgb (11.4-16.0) gm/dL Hct (34.0-46.0) % MCV (80.0-100.0) fL MCH (25.0-35.0) pg MCHC (31.0-37.0) g/dL RDW (11.5-15.5) % Plt Count (150-450) k/uL Neutrophils % % Lymphocytes % % Monocytes % % Eosinophils % % Basophils % % Neutrophils # (1.3-7.7) k/uL Lymphocytes # (1.0-4.8) k/uL Monocytes # (0-1.0) k/uL Eosinophils # (0-0.7) k/uL Basophils # (0-0.2) k/uL PT (9.0-12.0) sec INR (<1.2) APTT (22.0-30.0) sec Sodium (137-145) mmol/L Potassium (3.5-5.1) mmol/L Chloride (98-107) mmol/L Carbon Dioxide (22-30) mmol/L Anion Gap mmol/L BUN (7-17) mg/dL Creatinine (0.52-1.04) mg/dL Est GFR (CKD-EPI)AfAm (>60 ml/min/1.73 sqM) Est GFR (CKD-EPI)NonAf (>60 ml/min/1.73 sqM) Glucose (74-99) mg/dL Calcium (8.4-10.2) mg/dL Phosphorus (2.5-4.5) mg/dL Magnesium (1.6-2.3) mg/dL Total Bilirubin (0.2-1.3) mg/dL AST (14-36) U/L ALT (9-52) U/L Alkaline Phosphatase (38-126) U/L Creatine Kinase (30-135) U/L Troponin I <0.012 (0.000-0.034) ng/mL Total Protein (6.3-8.2) g/dL Albumin (3.5-5.0) g/dL TSH (0.465-4.680) mIU/L Urine Color Yellow Urine Appearance Turbid H (Clear) Urine pH 8.0 (5.0-8.0) Ur Specific [place] 1.017 (1.001-1.035) Urine Protein Negative (Negative) Urine Glucose (UA) Negative (Negative) Urine Ketones Negative (Negative) Urine Blood Negative (Negative) Urine Nitrite Negative (Negative) Urine Bilirubin Negative (Negative) Urine Urobilinogen <2.0 (<2.0) mg/dL Ur Leukocyte Esterase Negative (Negative) Ur Squamous Epith Cells 11 H (0-4) /hpf Urine Mucus Rare H (None) /hpf - NIH Stroke Scale 1a. Level of Consciousness: (0) alert 1b. LOC Questions: (0) answers correctly 1c. LOC Commands: (0) performs tasks correctly 2. Best Gaze: (0) normal 3. Visual: (0) no visual loss 4. Facial Palsy: (0) normal symmetrical movement 5a. Motor Arm Left: (0) no drift 5b. Motor Arm Right: (0) no drift 6a. Motor Leg Left: (0) no drift 6b. Motor Leg Right: (0) no drift 7. Limb Ataxia: (0) absent 8. Sensory: (0) normal 9. Best Language: (0) no aphasia 10. Dysarthria: (0) normal 11. Extinction/Inattention: (0) no abnormality - Thrombolytic Inclusion/Exclusion Thrombolytic Exclusion Criteria: Symptom Onset > 3 Hours - Medical Decision Making 29 female to the ED for headache, anxiety, not feeling well, headache is now improved, ok for discharge. - Radiology Data Radiology results: report reviewed (CT brain CT angio head and neck negative for acute disease), image reviewed - EKG Data -: EKG Interpreted by Me (EKG shows sinus rhythm rate of 71, WI 154, QRS 90, QTc 423) Past Medical History Past Medical History: No Reported History Additional Past Medical History / Comment(s): HPV + with precancerous cells., UTI History of Any Multi-Drug Resistant Organisms: None Reported Past Surgical History: Appendectomy Past Psychological History: No Psychological Hx Reported Smoking Status: Former smoker Past Alcohol Use History: Rare Past Drug Use History: Marijuana Course Vital Signs 05/31/19 05/31/19 05/31/19 14:13 15:36 17:12 Temperature 98.6 F 98 F Pulse Rate 84 83 84 Respiratory 18 18 18 Rate Blood Pressure 146/92 116/72 116/76 O2 Sat by Pulse 100 98 99 Oximetry Disposition Clinical Impression: Headache, Anxiety Disposition: HOME SELF-CARE Condition: Good Instructions (If sedation given, give patient instructions): Acute Headache (E D) Is patient prescribed a controlled substance at d/c from ED?: No Referrals: None,Stated [Primary Care Provider] - 1-2 days
[2019-05-31 15:18] LABS: Appearance,Urine Turbid (Clear); Bilirubin,Urine Negative (Negative); Blood,Urine Negative (Negative); Color,Urine Yellow; Glucose,Urine (UA) Negative (Negative); Ketones,Urine Negative (Negative); Leukocyte Esterase,Urine Negative (Negative); Mucus,Urine Rare /hpf; Nitrite,Urine Negative (Negative); Protein,Urine Negative (Negative); Specific Gravity,Urine 1.017 (1.001-1.035); Squamous Epithelial Cell,Urine 11 /hpf (0-4); Urobilinogen,Urine <2.0 mg/dL (<2.0)
[2019-05-31 15:19] LABS: Basophils % (A) 1 %; Eosinophils # (A) 0.1 k/uL (0-0.7); Eosinophils % (A) 1 %; HGB 13.7 gm/dL (11.4-16.0); Lymphocytes # (A) 0.9 k/uL (1.0-4.8); Lymphocytes % (A) 11 %; MCH 29.9 pg (25.0-35.0); MCHC 34.3 g/dL (31.0-37.0); MCV 87.1 fL (80.0-100.0); Mean Platelet Volume 8.1; Monocytes # (A) 0.3 k/uL (0-1.0); Monocytes % (A) 3 %; Neutrophils # (A) 6.7 k/uL (1.3-7.7); Neutrophils % (A) 83 %; Platelet Count 203 k/uL (150-450); RBC 4.59 m/uL (3.80-5.40); RDW 13.5 % (11.5-15.5); WBC 8.1 k/uL (3.8-10.6)
[2019-05-31 15:24] LABS: INR 1.2 (<1.2); Partial Thromboplastin Time 26.5 sec (22.0-30.0); Prothrombin Time 12.1 sec (9.0-12.0)
[2019-05-31 15:32] LABS: ALT 17 U/L (9-52); AST 19 U/L (14-36); African American GFR (CKD) >90 (>60 ml/min/1.73 sqM); Albumin 4.4 g/dL (3.5-5.0); Alkaline Phosphatase 48 U/L (38-126); Anion Gap 8 mmol/L; Blood Urea Nitrogen 10 mg/dL (7-17); Calcium 9.2 mg/dL (8.4-10.2); Carbon Dioxide 27 mmol/L (22-30); Chloride 105 mmol/L (98-107); Creatine Kinase 54 U/L (30-135); Glucose 93 mg/dL (74-99); Magnesium 1.8 mg/dL (1.6-2.3); Phosphorus 3.1 mg/dL (2.5-4.5); Sodium 140 mmol/L (137-145); Total Bilirubin 0.4 mg/dL (0.2-1.3); Total Protein 7.1 g/dL (6.3-8.2)
[2019-05-31] MEDS ORDERED: METOCLOPRAMIDE 5 MG/ML 2 ML VIAL IVP STA (15:38)
[2019-05-31] MEDS ORDERED: diphenhydrAMINE 50 MG/ML 1 ML VIAL IVP STA (15:38)
[2019-05-31] MEDS ORDERED: KETOROLAC 30 MG/ML 1 ML VIAL IVP STA (15:38)
--- NOTE | 2019-05-31 16:16 | CT ---
EXAMINATION TYPE: CT brain wo con DATE OF EXAM: 05/31/2019 COMPARISON: 02/26/2018 INDICATION: Right sided headache with visual disturbance and arm numbness DLP: 1087 mGycm, Automated exposure control for dose reduction was used. CONTRAST: None CT of the brain is performed utilizing 3 mm thick sections through the posterior fossa and 3 mm thick sections through the remaining calvarium. Study is performed within 24 hours of arrival to the hosp ital. No abnormal hyperdensity is present to suggest an acute intracranial hemorrhage. No mass lesion is evident. No acute infarcts are evident. Ventricles and sulci are appropriate for the patient age. Paranasal sinuses and mastoid air cells within the [id number] are clear. IMPRESSIONS: 1. No acute intracranial process
--- NOTE | 2019-05-31 16:24 | CT ---
EXAMINATION TYPE: CT angio head neck DATE OF EXAM: 05/31/2019 HISTORY: Right sided headache with visual disturbance and arm numbness COMPARISON: None CT DLP: 328.3 mGycm. Automated Exposure Control for Dose Reduction was Utilized. TECHNIQUE: CTA scan of the neck is performed with IV Contrast, patient injected with 50 mL of Isovue 370, axial images are obtained, coronal and sagittal reformatted images are reviewed. Three-D recons tructed images are created on an independent workstation and reviewed. FINDINGS: Carotid/Vascular Structures: There is a three-vessel arch. Vertebral arteries are codominant. Carotid artery bifurcations are unremarkable. Tortuosity of the distal left internal carotid artery is evide nt. Cervical of [place]: Vertebral basilar system appears normal. Posterior cerebral vasculature is unrema rkable. Internal carotid arteries bifurcate normally into A1 and M1 segments. A2 segments are normal. The anterior communicating artery is patent. No cerebral artery branches appear unremarkable. Warper Fixer ior communicating arteries are not identified. Other: No other suspicious abnormality. Lung apices appear clear. Thyroid as visualized is unremarkab le. IMPRESSION: 1. No flow-limiting stenosis bilateral carotid bifurcations. 2. Normal [place] of [place]
[2019-05-31 17:13] VITALS: BP 116/76; PULSE 84; TEMP 98
== END 2019-05-31 17:16 | disposition home or self-care (01) ==
LOC: EC 14:05
DX: F41.9 Anxiety disorder, unspecified (principal); R51 Headache; Z87.891 Personal history of nicotine dependence
CPT/HCPCS: 36415; 93005; 80053; 82550; 83735; 84100; 84443; 84484; 85025; 85610; 85730; 81001; 87086; 70496; 70450; 70498; 99285; 96374; 96375 ×3; 96361 ×2; J1200; J2765; J2405; J1885; Q9967

== ENCOUNTER 2021-01-25 14:42 | Emergency (ER) | payer OTHER ==
[2021-01-25 15:19] VITALS: RESP 18
[2021-01-25] MEDS ORDERED: SODIUM CHLORIDE 0.9% 1,000 ML IV STA (15:25)
--- NOTE | 2021-01-25 15:39 | ED ---
Back Pain HPI - General Chief Complaint: Back Pain/Injury Stated Complaint: early /abd & back pain Time Seen by Provider: 01/25/21 15:13 Source: patient Limitations: no limitations - History of Present Illness Initial Comments: 30-year-old female, , unknown week presents to the emergency department with chief complaint of lower abdominal cramping. Patient states she found out that she was yesterday after having 3 positive urine test. Patient reports this was not a planned . Patient was expecting her menstrual period to her at this time. Patient reports for the past 3-4 days she has been extreme to lower abdominal cramping with clear vaginal discharge but no vaginal bleeding. She does report increased frequency and urgency but denies any dysuria, hematuria, hematochezia or melena. She also reports some of the pain radiating to the back, particularly to the left lower backside. She denies any nausea vomiting or diarrhea. Denies any chest pain or shortness of breath. Denies any fevers or chills. States her most recent was 8 years ago. Has surgical history of appendectomy. - Related Data Home Medications Medication Instructions Recorded Confirmed No Known Home Medications 05/31/19 05/31/19 Allergies Allergy/AdvReac Type Severity Reaction Status Date / Time No Known Allergies Allergy Verified 01/25/21 15:14 Review of Systems ROS Statement: Those systems with pertinent positive or pertinent negative responses have been documented in the HPI. ROS Other: All systems not noted in ROS Statement are negative. Past Medical History Past Medical History: No Reported History Additional Past Medical History / Comment(s): HPV + with precancerous cells., UTI History of Any Multi-Drug Resistant Organisms: None Reported Past Surgical History: Appendectomy Past Psychological History: No Psychological Hx Reported Smoking Status: Never smoker Past Alcohol Use History: Rare Past Drug Use History: Marijuana General Exam Limitations: no limitations General appearance: alert, in no apparent distress Head exam: Present: atraumatic, normocephalic, normal inspection Eye exam: Present: normal appearance, PERRL, EOMI Pupils: Present: normal accommodation ENT exam: Present: normal exam, normal oropharynx, mucous membranes moist Neck exam: Present: normal inspection, full ROM. Absent: tenderness Respiratory exam: Present: normal lung sounds bilaterally. Absent: respiratory distress Cardiovascular Exam: Present: regular rate, normal rhythm, normal heart sounds GI/Abdominal exam: Present: soft. Absent: distended, tenderness, guarding Extremities exam: Present: normal inspection, full ROM, normal capillary refill. Absent: tenderness Back exam: Present: normal inspection, full ROM. Absent: tenderness, CVA tenderness (R), CVA tenderness (L) Neurological exam: Present: alert, oriented X3 Psychiatric exam: Present: normal affect, normal mood Skin exam: Present: warm, dry, intact, normal color Course Vital Signs 01/25/21 15:12 Temperature 98.4 F Pulse Rate 65 Respiratory 18 Rate Blood Pressure 134/71 O2 Sat by Pulse 100 Oximetry Medical Decision Making - Medical Decision Making 30-year-old female, , unknown week presents to the emergency department with chief complaint of lower abdominal cramping. On physical examination, mild lower abdominal tenderness. CBC CMP unremarkable. Beta Quant syndrome is 544. Ultrasound is unremarkable. UA reveals no signs of urinary tract infection. Patient is still quite early in the . Patient was given IV fluids. On reevaluation, patient does report some improvement in symptoms. She is otherwise resting comfortably and states the pain is very mild. I advised the patient to follow up with her OB. I gave her contact information. Strict return parameters were thoroughly discussed with patient was understanding and agreeable. Case discussed with Dr. Blevins. - Lab Data Result diagrams: 01/25/21 15:38 01/25/21 15:38 Lab Results 01/25/21 01/25/21 01/25/21 Range/Units 15:38 15:38 15:38 WBC 6.6 (3.8-10.6) k/uL RBC 4.65 (3.80-5.40) m/uL Hgb 14.6 (11.4-16.0) gm/dL Hct 41.6 (34.0-46.0) % MCV 89.3 (80.0-100.0) fL MCH 31.4 (25.0-35.0) pg MCHC 35.2 (31.0-37.0) g/dL RDW 12.0 (11.5-15.5) % Plt Count 248 (150-450) k/uL MPV 7.6 Neutrophils % 65 % Lymphocytes % 24 % Monocytes % 6 % Eosinophils % 2 % Basophils % 1 % Neutrophils # 4.3 (1.3-7.7) k/uL Lymphocytes # 1.6 (1.0-4.8) k/uL Monocytes # 0.4 (0-1.0) k/uL Eosinophils # 0.1 (0-0.7) k/uL Basophils # 0.0 (0-0.2) k/uL Sodium 138 (137-145) mmol/L Potassium 3.9 (3.5-5.1) mmol/L Chloride 105 (98-107) mmol/L Carbon Dioxide 24 (22-30) mmol/L Anion Gap 9 mmol/L BUN 11 (7-17) mg/dL Creatinine 0.59 (0.52-1.04) mg/dL Est GFR (CKD-EPI)AfAm >90 (>60 ml/min/1.73 sqM) Est GFR (CKD-EPI)NonAf >90 (>60 ml/min/1.73 sqM) Glucose 110 H (74-99) mg/dL Calcium 8.9 (8.4-10.2) mg/dL Total Bilirubin 0.3 (0.2-1.3) mg/dL AST 23 (14-36) U/L ALT 18 (4-34) U/L Alkaline Phosphatase 41 (38-126) U/L Total Protein 7.2 (6.3-8.2) g/dL Albumin 4.5 (3.5-5.0) g/dL HCG, Quant 544.4 mIU/mL Urine Color Yellow Urine Appearance Clear (Clear) Urine pH 6.5 (5.0-8.0) Ur Specific [place] 1.024 (1.001-1.035) Urine Protein Negative (Negative) Urine Glucose (UA) Negative (Negative) Urine Ketones Negative (Negative) Urine Blood Negative (Negative) Urine Nitrite Negative (Negative) Urine Bilirubin Negative (Negative) Urine Urobilinogen 4.0 (<2.0) mg/dL Ur Leukocyte Esterase Moderate H (Negative) Urine RBC 1 (0-5) /hpf Urine WBC 2 (0-5) /hpf Ur Squamous Epith Cells 5 H (0-4) /hpf Urine Mucus Rare H (None) /hpf Disposition Clinical Impression: Abdominal cramping Disposition: HOME SELF-CARE Condition: Stable Instructions (If sedation given, give patient instructions): (ED) Additional Instructions: Take vitamins. Follow-up with an OB. Return to emergency department if symptoms worsen. Is patient prescribed a controlled substance at d/c from ED?: No Referrals: None,Stated [Primary Care Provider] - 1-2 days Kyler Rowell MD [STAFF PHYSICIAN] - 1-2 days Time of Disposition: 17:12
[2021-01-25 15:48] LABS: Basophils % (A) 1 %; Eosinophils # (A) 0.1 k/uL (0-0.7); Eosinophils % (A) 2 %; HCT 41.6 % (34.0-46.0); HGB 14.6 gm/dL (11.4-16.0); Lymphocytes # (A) 1.6 k/uL (1.0-4.8); Lymphocytes % (A) 24 %; MCH 31.4 pg (25.0-35.0); MCHC 35.2 g/dL (31.0-37.0); MCV 89.3 fL (80.0-100.0); Mean Platelet Volume 7.6; Monocytes # (A) 0.4 k/uL (0-1.0); Monocytes % (A) 6 %; Neutrophils # (A) 4.3 k/uL (1.3-7.7); Neutrophils % (A) 65 %; Platelet Count 248 k/uL (150-450); RBC 4.65 m/uL (3.80-5.40); WBC 6.6 k/uL (3.8-10.6)
[2021-01-25 15:49] LABS: Appearance,Urine Clear (Clear); Bilirubin,Urine Negative (Negative); Blood,Urine Negative (Negative); Color,Urine Yellow; Glucose,Urine (UA) Negative (Negative); Ketones,Urine Negative (Negative); Leukocyte Esterase,Urine Moderate (Negative); Mucus,Urine Rare /hpf; Nitrite,Urine Negative (Negative); PH, Urine 6.5 (5.0-8.0); Protein,Urine Negative (Negative); RBC,Urine 1 /hpf (0-5); Specific Gravity,Urine 1.024 (1.001-1.035); Squamous Epithelial Cell,Urine 5 /hpf (0-4); WBC,Urine 2 /hpf (0-5)
[2021-01-25 15:58] LABS: ALT 18 U/L (4-34); AST 23 U/L (14-36); African American GFR (CKD) >90 (>60 ml/min/1.73 sqM); Albumin 4.5 g/dL (3.5-5.0); Alkaline Phosphatase 41 U/L (38-126); Anion Gap 9 mmol/L; Blood Urea Nitrogen 11 mg/dL (7-17); Calcium 8.9 mg/dL (8.4-10.2); Carbon Dioxide 24 mmol/L (22-30); Chloride 105 mmol/L (98-107); Glucose 110 mg/dL (74-99); Non-African American GFR(CKD) >90 (>60 ml/min/1.73 sqM); Potassium 3.9 mmol/L (3.5-5.1); Sodium 138 mmol/L (137-145); Total Bilirubin 0.3 mg/dL (0.2-1.3); Total Protein 7.2 g/dL (6.3-8.2)
[2021-01-25 16:14] LABS: HCG,Quantitative Serum 544.4 mIU/mL
--- NOTE | 2021-01-25 16:27 | US ---
EXAMINATION TYPE: Transabdominal DATE OF EXAM: 01/25/2021 4:10 PM COMPARISON: NONE CLINICAL HISTORY: lower abdominal cramping, early preg, unknown week. No spotting. Patient found out she was yesterday. EXAM PERFORMED: Transabdominal (TA) EXAM MEASUREMENTS: GESTATIONAL AGE / DATING Physician Established: Not yet established Dates by LMP: ( 5 weeks/3 days) EDC: 09/24/2021 Dates by First Scan: No previous this is first scan Dates by Current Scan for: No IUP seen at this time MATERNAL ANATOMY Uterus: 8.7 x 7.6 x 6.2 cm Right Ovary: 2.8 x 2.0 x 1.6 cm Left Ovary: 3.2 x 2.7 x 2.1 cm Post CDS / Adnexa: no free fluid Presence of free fluid: no Presence of corpus luteal cyst: left ovarian lesion with peripheral vascular flow = 1.8 x 1.6 x 1.8 c m Presence of subchorionic bleed: no GESTATION / SURVEY IUP: No IUP seen at this time Date of LMP: 12/18/2020, [id number] Beta HcG (if available): 544.4 No GS, YS or CRL visualized. IMPRESSION: No intrauterine gestation is identified, follow-up as indicated. No evident adnexal mass..
[2021-01-25 18:14] VITALS: BP 107/87; PULSE 64; TEMP 98.1
== END 2021-01-25 18:27 | disposition home or self-care (01) ==
LOC: EC 14:42
DX: O26.891 Other specified pregnancy related conditions, first trimester (principal); R10.30 Lower abdominal pain, unspecified; Z3A.00 Weeks of gestation of pregnancy not specified
CPT/HCPCS: 36415; 76801; 80053; 81001; 84702; 85025; 87070; 96360; 99284

== ENCOUNTER 2021-04-11 16:46 | Emergency (ER) | payer OTHER ==
[2021-04-11] MEDS ORDERED: SODIUM CHLORIDE 0.9% 1,000 ML IV STA (17:20)
[2021-04-11 17:38] LABS: Appearance,Urine Clear (Clear); Basophils % (A) 0 %; Bilirubin,Urine Negative (Negative); Blood,Urine Negative (Negative); Color,Urine Yellow; Eosinophils # (A) 0.2 k/uL (0-0.7); Eosinophils % (A) 2 %; Glucose,Urine (UA) Negative (Negative); HCT 36.9 % (34.0-46.0); HGB 13.3 gm/dL (11.4-16.0); Ketones,Urine Negative (Negative); Leukocyte Esterase,Urine Trace (Negative); Lymphocytes # (A) 1.4 k/uL (1.0-4.8); Lymphocytes % (A) 18 %; MCH 32.1 pg (25.0-35.0); MCHC 36.1 g/dL (31.0-37.0); MCV 88.9 fL (80.0-100.0); Monocytes # (A) 0.5 k/uL (0-1.0); Monocytes % (A) 6 %; Mucus,Urine Occasional /hpf; Neutrophils # (A) 5.6 k/uL (1.3-7.7); Neutrophils % (A) 72 %; Nitrite,Urine Negative (Negative); Platelet Count 209 k/uL (150-450); Protein,Urine Negative (Negative); RBC 4.15 m/uL (3.80-5.40); RBC,Urine 1 /hpf (0-5); RDW 12.7 % (11.5-15.5); Specific Gravity,Urine 1.021 (1.001-1.035); Squamous Epithelial Cell,Urine 7 /hpf (0-4); WBC 7.8 k/uL (3.8-10.6); WBC,Urine 1 /hpf (0-5)
[2021-04-11 17:47] LABS: ALT 12 U/L (4-34); AST 21 U/L (14-36); African American GFR (CKD) >90 (>60 ml/min/1.73 sqM); Albumin 3.9 g/dL (3.5-5.0); Alkaline Phosphatase 40 U/L (38-126); Amylase 48 U/L (30-110); Anion Gap 7 mmol/L; Blood Urea Nitrogen 10 mg/dL (7-17); Calcium 9.3 mg/dL (8.4-10.2); Carbon Dioxide 26 mmol/L (22-30); Chloride 104 mmol/L (98-107); Glucose 91 mg/dL (74-99); Lipase 112 U/L (23-300); Non-African American GFR(CKD) >90 (>60 ml/min/1.73 sqM); Potassium 3.9 mmol/L (3.5-5.1); Sodium 137 mmol/L (137-145); Total Bilirubin 0.2 mg/dL (0.2-1.3); Total Protein 6.6 g/dL (6.3-8.2)
--- NOTE | 2021-04-11 18:50 | ED ---
General Adult HPI - General Chief complaint: OB/Uterine Contractions Stated complaint: 15wks preg,Abd Pain Time Seen by Provider: 04/11/21 17:20 Source: patient Mode of arrival: ambulatory Limitations: no limitations - History of Present Illness Initial comments: 31-year-old female currently 15 weeks presents to the emergency room for a chief complaint of abdominal pain. Patient states that a couple days ago she started to have lower abdominal pain. She states it feels like cramping. Patient denies any vaginal bleeding or discharge. Patient did have an ultrasound done at 8 weeks but has not had one since. The ultrasound was nor mal aside from the cyst.Patient has no other complaints at this time including shortness of breath, chest pain, nausea or vomiting, headache, or visual changes. - Related Data Previous Rx's Medication Instructions Recorded Gvc-Grgn-Bvhlm Acid 1 each PO DAILY #30 cap 01/25/21 [-U Capsule] Allergies Allergy/AdvReac Type Severity Reaction Status Date / Time No Known Allergies Allergy Verified 04/11/21 16:48 Review of Systems ROS Statement: Those systems with pertinent positive or pertinent negative responses have been documented in the HPI. ROS Other: All systems not noted in ROS Statement are negative. Past Medical History Past Medical History: No Reported History Additional Past Medical History / Comment(s): HPV + with precancerous cells., UTI History of Any Multi-Drug Resistant Organisms: None Reported Past Surgical History: Appendectomy Past Psychological History: No Psychological Hx Reported Smoking Status: Never smoker Past Alcohol Use History: None Reported Past Drug Use History: None Reported General Exam Limitations: no limitations General appearance: alert, in no apparent distress Head exam: Present: atraumatic, normocephalic, normal inspection Eye exam: Present: normal appearance, PERRL, EOMI. Absent: scleral icterus, conjunctival injection, periorbital swelling ENT exam: Present: normal exam, mucous membranes moist Neck exam: Present: normal inspection, full ROM. Absent: tenderness, meningismus, lymphadenopathy Respiratory exam: Present: normal lung sounds bilaterally. Absent: respiratory distress, wheezes, rales, rhonchi, stridor Cardiovascular Exam: Present: regular rate, normal rhythm, normal heart sounds. Absent: systolic murmur, diastolic murmur, rubs, gallop, clicks GI/Abdominal exam: Present: soft, normal bowel sounds, other (Gravid). Absent: distended, tenderness, guarding, rebound, rigid Course Vital Signs 04/11/21 04/11/21 16:48 18:25 Temperature 98 F 97.6 F Pulse Rate 80 66 Respiratory 18 18 Rate Blood Pressure 122/81 101/74 O2 Sat by Pulse 100 100 Oximetry Medical Decision Making - Medical Decision Making Vitals are stable. CBC CMP unremarkable. Urinalysis does not show evidence of bacteria. Ultrasound shows gestational age is 16 weeks and 1 day. No complicating process seen. Amniotic fluid is adequate. Cervix is closed. At this time patient will be discharged home to follow up with [facility] who she is already following with. If she has worsening symptoms such as worsening pain or bleeding she will return to the emergency room. - Lab Data Result diagrams: 04/11/21 17:24 04/11/21 17:24 Lab Results 04/11/21 04/11/21 04/11/21 Range/Units 17:24 17:24 17:24 WBC 7.8 (3.8-10.6) k/uL RBC 4.15 (3.80-5.40) m/uL Hgb 13.3 (11.4-16.0) gm/dL Hct 36.9 (34.0-46.0) % MCV 88.9 (80.0-100.0) fL MCH 32.1 (25.0-35.0) pg MCHC 36.1 (31.0-37.0) g/dL RDW 12.7 (11.5-15.5) % Plt Count 209 (150-450) k/uL MPV 8.0 Neutrophils % 72 % Lymphocytes % 18 % Monocytes % 6 % Eosinophils % 2 % Basophils % 0 % Neutrophils # 5.6 (1.3-7.7) k/uL Lymphocytes # 1.4 (1.0-4.8) k/uL Monocytes # 0.5 (0-1.0) k/uL Eosinophils # 0.2 (0-0.7) k/uL Basophils # 0.0 (0-0.2) k/uL Sodium 137 (137-145) mmol/L Potassium 3.9 (3.5-5.1) mmol/L Chloride 104 (98-107) mmol/L Carbon Dioxide 26 (22-30) mmol/L Anion Gap 7 mmol/L BUN 10 (7-17) mg/dL Creatinine 0.45 L (0.52-1.04) mg/dL Est GFR (CKD-EPI)AfAm >90 (>60 ml/min/1.73 sqM) Est GFR (CKD-EPI)NonAf >90 (>60 ml/min/1.73 sqM) Glucose 91 (74-99) mg/dL Calcium 9.3 (8.4-10.2) mg/dL Total Bilirubin 0.2 (0.2-1.3) mg/dL AST 21 (14-36) U/L ALT 12 (4-34) U/L Alkaline Phosphatase 40 (38-126) U/L Total Protein 6.6 (6.3-8.2) g/dL Albumin 3.9 (3.5-5.0) g/dL Amylase 48 (30-110) U/L Lipase 112 (23-300) U/L Urine Color Yellow Urine Appearance Clear (Clear) Urine pH 6.0 (5.0-8.0) Ur Specific [place] 1.021 (1.001-1.035) Urine Protein Negative (Negative) Urine Glucose (UA) Negative (Negative) Urine Ketones Negative (Negative) Urine Blood Negative (Negative) Urine Nitrite Negative (Negative) Urine Bilirubin Negative (Negative) Urine Urobilinogen 2.0 (<2.0) mg/dL Ur Leukocyte Esterase Trace H (Negative) Urine RBC 1 (0-5) /hpf Urine WBC 1 (0-5) /hpf Ur Squamous Epith Cells 7 H (0-4) /hpf Urine Mucus Occasional H (None) /hpf Disposition Clinical Impression: Abdominal pain during Disposition: HOME SELF-CARE Condition: Good Instructions (If sedation given, give patient instructions): Abdominal Pain in (ED) Additional Instructions: Please follow up with [facility]. Return to the emergency room for any worsening symptoms such as worsening pain or bleeding. Is patient prescribed a controlled substance at d/c from ED?: No Referrals: Dominic Vazquez DO [Primary Care Provider] - 1-2 days Ignacio Ochoa MD [STAFF PHYSICIAN] - 1-2 days Time of Disposition: 19:53
--- NOTE | 2021-04-11 19:49 | US ---
EXAMINATION TYPE: US OB >= 14 wk fetus DATE OF EXAM: 04/11/2021 COMPARISON: US CLINICAL HISTORY: painPain x 2 days. Hx 2 miscarriages. A2. TECHNIQUE: Transabdominal (TA) GESTATIONAL AGE / DATING Physician Established: (15 weeks/3 days) EDC: 09/30/2021 Dates by LMP: Unknown. Dates by First Scan: This is first scan Dates by Current Scan: (16 weeks/1 day) EDC: 09/25/2021 SURVEY IUP: Single PLACENTA: Fundal-posterior. Hypoechoic area seen: 1.1 x 0.7 x 0.8 cm. PREVIA: No Previa SHAISTA: 10.17 cm Normal CERVICAL LENGTH (transabdominal: norm > 3.0cm): 3.6 cm BIOMETRY PRESENTATION: Vertex BPD: 3.26 cm 16 weeks / 1 day HC: 12.41 cm 16 weeks / 2 days AC: 10.06 cm 16 weeks / 1 day FL: 1.95 cm 15 weeks / 6 days ESTIMATED WEIGHT IN GRAMS: 140.83 grams ESTIMATED WEIGHT IN LBS/OZ: 0 lbs. 5 oz. WEIGHT PERCENTAGE BASED ON ESTABLISHED DATES: 77.1% HC/AC: 1.23 Normal FL/AC: 19.33 HEART RATE: 146 bpm RHYTHM: Normal IMPRESSION: The ultrasound gestational age is 16 weeks and 1 day. No complicating process seen. Amniotic fluid is adequate. Cervix is closed.
[2021-04-11 20:16] VITALS: BP 104/64; PULSE 68; RESP 16; TEMP 97.3
== END 2021-04-11 20:16 | disposition home or self-care (01) ==
LOC: EC 16:46
DX: O26.892 Other specified pregnancy related conditions, second trimester (principal); Z3A.15 15 weeks gestation of pregnancy; Z90.89 Acquired absence of other organs
CPT/HCPCS: 36415; 76805; 80053; 81001; 82150; 83690; 85025; 96360; 99284

== ENCOUNTER 2021-05-15 15:30 | Observation (INO) | payer OTHER ==
[2021-05-15] MEDS ORDERED: miSOPROStoL 25 MCG TAB VAGINAL PRN (16:07)
[2021-05-15] MEDS ORDERED: BUTORPHANOL 1 MG/ML 1 ML VIAL IV PRN (16:49)
[2021-05-15] MEDS ORDERED: ONDANSETRON 4 MG/2 ML VIAL IVP PRN (16:49)
[2021-05-15] MEDS ORDERED: METOCLOPRAMIDE 5 MG/ML 2 ML VIAL IVP PRN (16:49)
[2021-05-15] MEDS ORDERED: ACETAMINOPHEN TAB 325 MG TAB PO PRN ×2 (16:49→23:42)
[2021-05-15] MEDS: miSOPROStoL 200 MCG TAB VAGINAL SCH ×2 (16:55→21:02)
[2021-05-15 16:59] LABS: Basophils # (A) 0.1 k/uL (0-0.2); Basophils % (A) 1 %; Eosinophils # (A) 0.1 k/uL (0-0.7); Eosinophils % (A) 1 %; HCT 39.7 % (34.0-46.0); HGB 13.7 gm/dL (11.4-16.0); Lymphocytes # (A) 1.3 k/uL (1.0-4.8); Lymphocytes % (A) 19 %; MCH 31.2 pg (25.0-35.0); MCHC 34.4 g/dL (31.0-37.0); MCV 90.6 fL (80.0-100.0); Mean Platelet Volume 8.2; Monocytes # (A) 0.4 k/uL (0-1.0); Monocytes % (A) 5 %; Neutrophils # (A) 5.1 k/uL (1.3-7.7); Neutrophils % (A) 72 %; Platelet Count 206 k/uL (150-450); RBC 4.38 m/uL (3.80-5.40); RDW 12.9 % (11.5-15.5)
--- NOTE | 2021-05-15 17:10 | P.HPOB ---
History of Present Illness H&P Date: 05/15/21 Chief Complaint: 15-4/7 weeks, intrauterine demise The patient is a 31-year-old 5 para 20-2 found in the office today at ultrasound for anatomic survey with a demise measuring 15 and 4/7 weeks. Due date based upon earlier dating parameters, 8 week ultrasound, should have made the patient 20 2/7 weeks. The patient does admit that she has had some cramping recently but has had no other secondary symptoms. She denies any potential etiologic issues. Laboratory workup demonstrates a blood type of A+. Ultrasound failed to show any obvious anatomic issues. Obstetrical history: 5 para 20-2 with 2 term vaginal deliveries and 2 early miscarriages. Current statistics are listed in history present illness. EDC of 09/30/2021 was established by an 8 week ultrasound. Laboratory workup again demonstrates her blood type to be A+ with a negative antibody screen. Rubella status is immune. The remainder of the laboratory workup was within normal limits. Gynecologic history: Unremarkable with no history of any infections to include STDs. Review of Systems Review of systems is confined to history of present illness. Past Medical History Past Medical History: No Reported History Additional Past Medical History / Comment(s): HPV + with precancerous cells., UTI History of Any Multi-Drug Resistant Organisms: None Reported Past Surgical History: Appendectomy Past Anesthesia/Blood Transfusion Reactions: No Reported Reaction Past Psychological History: No Psychological Hx Reported Smoking Status: Former smoker Past Alcohol Use History: None Reported Past Drug Use History: None Reported - Past Family History Mother Family Medical History: Hypertension Medications and Allergies Home Medications Medication Instructions Recorded Confirmed Type Tix-Xblt-Luwuh Acid 1 each PO DAILY #30 cap 01/25/21 05/15/21 Rx [-U Capsule] Allergies Allergy/AdvReac Type Severity Reaction Status Date / Time No Known Allergies Allergy Verified 05/15/21 16:06 Exam Vital Signs Temp Pulse Resp BP Pulse Ox 05/15/21 16:07 98.0 F 82 16 115/69 99 05/15/21 16:05 98 F 82 16 115/69 99 Intake and Output 05/15/21 05/15/21 05/15/21 06:59 14:59 22:59 Other: Weight 57.606 kg In general, this is a well-developed, well-nourished white female in no acute distress. Her heart has a regular rhythm and rate without murmur. Her lungs are clear to auscultation bilaterally. Her abdomen is nondistended, has normal active bowel sounds, soft, nontender, and without any palpable masses aside from the uterine fundus consistent with approximately 15 week size. Her extremities are without any cyanosis, clubbing, or edema and are nontender to palpation bilaterally. Digital cervical examination demonstrates her cervix to be approximately fingertip to 1 cm dilated, perhaps 40-50% effaced but still with a high presentation. Results Result Diagrams: 05/15/21 16:40 Assessment and Plan (1) demise before 20 weeks with retention of fetus Current Visit: Yes Status: Acute Code(s): O02.1 - MISSED SNOMED Code(s): 712761839 (2) 15 weeks gestation of Current Visit: Yes Status: Acute Code(s): Z3A.15 - 15 WEEKS GESTATION OF SNOMED Code(s): 4267658 Plan: I have had a long discussion with the patient and her regarding the potential etiologies of intrauterine loss. We have opted at this point to hold on planning for any testing until delivery and thorough examination of the fetus can be carried out. She has been admitted for Cytotec induction and 400 g of Cytotec placed in the posterior fornix behind the cervix per protocol. This will be carried out every 4-6 hours as needed until delivery. Risks and complications have been thoroughly discussed with the patient and she has understood and agreed to proceed. She is a candidate for any type of analgesic pain relief that she may choose including POST DOC FELLOWSHIP or even epidural. She has signed a consent for D&C should she have retained placenta following delivery of the fetus.
[2021-05-15] MEDS ORDERED: ACETAMINOPHEN IV (For NPO) 1,000 MG in EMPTY BAG 1 BAG IVPB PRN (17:42)
[2021-05-15] MEDS ORDERED: KETOROLAC 15 MG/ML 1 ML VIAL IVP PRN (17:45)
[2021-05-15] MEDS ORDERED: KETOROLAC 15 MG/ML 1 ML VIAL IVP SCH (18:00)
[2021-05-15] MEDS ORDERED: LACTATED RINGERS 1,000 ML IV SCH (20:30)
[2021-05-15] MEDS ORDERED: OXYTOCIN 30 UNITS/500 ML NS 30 UNIT in SALINE 1 500ML.BAG IV SCH ×2 (23:15→23:45)
--- NOTE | 2021-05-15 23:18 | P.PROBDLV ---
Vaginal Delivery Note - . Vaginal Delivery Note: The patient is a 31-year-old 5 para 2021 admitted at 20-2/7 weeks by good dating parameters with a demise measuring 15-4/7 weeks. She has no risk factors for demise and has had no complications to this point in the . She was admitted and started on Cytotec 400 g intravaginally every 4 hours. After the second dose was placed, she shortly thereafter had spontaneous rupture of membranes of blood-tinged fluid and progressed to a point where small parts were felt within the cervix at approximately 3-4 cm of dilation. She pushed to a spontaneous vaginal delivery of a nonviable roughly 15 week fetus which was showing signs of significant decomposition and softening. Examination of the fetus demonstrated what appeared to be very low set ears as well as very incomplete formation the facial features including nasal features and micrognathia. Examination the limbs is not pertinent given the degree of decomposition. There is no evidence of rocker-bottom feet though this is not reliable given the degree of decomposition. 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 At this time, the placenta remains in situ and Pitocin has been started to affect delivery. There is minimal to mild ongoing bleeding at this time and the patient continues to have moderate cramping. There were no lacerations of the perineum, vagina, or cervix. Estimated blood loss for this portion of the delivery is approximately 50 mL or less. There have been no complications to this point. We'll wait delivery of placenta and anticipate that in short order.
--- NOTE | 2021-05-15 23:37 | P.EN ---
Approximately 15 minutes after delivery of the fetus, the patient reported feeling pressure and cramping. Vaginal examination demonstrated cervix to be approximately 2-3 cm dilated. The cord was still in place and gentle traction was applied and the patient pushed. Over the course of approximately 3-4 pushes, the placenta was able to be grasped in the vagina and gently removed wit h maternal effort for a spontaneous delivery of the placenta. Examination placenta demonstrated that it appeared to be intact and otherwise normal. During delivery, the cord did lacerate from the placental disc. There was minimal ongoing bleeding following delivery of the placenta. The patient declined any further interventions with chromosomal evaluation or autopsy or other testing. She has declined the option for involvement of a mortuary. The intention will be for her to be discharged when stable in several hours.
[2021-05-15] MEDS ORDERED: ZOLPIDEM 5 MG TAB PO PRN (23:42)
[2021-05-15] MEDS ORDERED: diphenhydrAMINE 50 MG/ML 1 ML VIAL IVP PRN ×2 (23:42)
[2021-05-15] MEDS ORDERED: LANOLIN CREAM 5 GM TUBE TOPICAL PRN (23:42)
[2021-05-15] MEDS ORDERED: diphenhydrAMINE 25 MG CAP PO PRN (23:42)
[2021-05-15] MEDS ORDERED: HYDROCORTISONE 2.5% RECTAL CREAM 30 GM TUBE RECTAL PRN (23:42)
[2021-05-15] MEDS ORDERED: SIMETHICONE 80 MG CHEWABLE PO PRN (23:42)
[2021-05-15] MEDS ORDERED: diphenhydrAMINE 50 MG CAP PO PRN (23:42)
--- NOTE | 2021-05-15 23:44 | P.DS ---
Providers Date of admission: 05/15/21 15:30 Expected date of discharge: 05/16/21 Attending physician: Ignacio Ochoa Primary care physician: Stated None - Discharge Diagnosis(es) (1) demise before 20 weeks with retention of fetus Current Visit: Yes Status: Acute (2) 15 weeks gestation of Current Visit: Yes Status: Acute Hospital Course: Patient is a 31-year-old 5 para 2021 admitted at 20-2/7 weeks by good dating parameters. She is admitted with documented 15-4/7 weeks demise. Ultrasound demonstrated no obvious anatomic abnormalities. On labor and delivery, she had Cytotec induction of labor with 400 g of Cytotec placed intravaginally in the posterior fornix. After a second dose of Cytotec was placed, she had spontaneous rupture of membranes of blood-tinged fluid. She progressed to a point that small parts were palpable within the cervix at approximately 3-4 cm of dilation. She pushed to a normal spontaneous vaginal delivery of a nonviable roughly 15 week fetus with features consistent with possible syndromic or chromosomal abnormalities, specifically, low set ears and micrognathia and underdevelopment of the nasal features. The fetus was moderately decomposed and no other findings were apparent. Shortly thereafter, she pushed to a normal spontaneous vaginal delivery of the placenta which was palpable within the cervix and removed intact. The cord did lacerate during delivery so insertion could not be determined. There was no ongoing bleeding found delivery. She was to go through recovery for the next several hours and was deemed stable for discharge assuming no significant bleeding and therefore discharged home on hospital day #2, approximately 12-18 hours after admission and instructed to follow up in 2 weeks routinely. Discharge instructions included calling for any significantly increased bleeding or foul-smelling lochia, significantly increased fever or abdominal pain, perineal complaints, or anything else that concerned her. She was instructed to have nothing in the vagina for at least 4-6 weeks time to include intercourse. She understood her instructions and agrees to follow up as noted above. Discharge medications included only [id number] analgesic pain medications as needed. Maternal blood type is A+ and rubella status is immune. Procedures: #1. Cytotec induction #2. Normal spontaneous vaginal delivery, nonviable fetus Patient Condition at Discharge: Stable Plan - Discharge Summary New Discharge Prescriptions: No Action Hxn-Cvyj-Tbwwq Acid [-U Capsule] 1 each PO DAILY #30 cap Discharge Medication List Tzo-Nmpj-Elxyv Acid [-U Capsule] 1 each PO DAILY #30 cap 01/25/21 [Rx] Follow up Appointment(s)/Referral(s): Ignacio Ochoa MD [STAFF PHYSICIAN] - 1 Week Discharge Disposition: HOME SELF-CARE
[2021-05-16] MEDS: IBUPROFEN 600 MG TAB PO SCH ×2 (01:45→09:32)
[2021-05-16] MEDS: miSOPROStoL 200 MCG TAB VAGINAL SCH (01:45)
[2021-05-16 09:25] VITALS: BP 101/68; PULSE 68; RESP 16; TEMP 98
== END 2021-05-16 10:20 | disposition home or self-care (01) ==
LOC: 4FBP 15:30 → INTOOBSV 15:30 → UNDODISIN 05-16 10:20
PROVIDERS: ADMIT Obstetrics & Gynecology; ATTEND Obstetrics & Gynecology
DX: O02.1 Missed abortion (principal); Z3A.20 20 weeks gestation of pregnancy; Z87.891 Personal history of nicotine dependence; Z87.440 Personal history of urinary (tract) infections; Z87.42 Personal history of other diseases of the female genital tract; Z82.49 Family history of ischemic heart disease and other diseases of the circulatory system
CPT/HCPCS: 59855; 96366; 96375; 96365; 86900; 86901; 88305; 85025; 86850; G0378 ×2; G0379; S0191; J2590; J1885

== ENCOUNTER 2021-12-26 08:47 | Day surgery (SDC) | payer OTHER ==
[2021-12-24 14:08] VITALS: BMI 21.9
[~2021-12-26 08:47] MED LIST: LACTATED RINGERS 1,000 ML IV SCH; LIDOCAINE 1% (10MG/ML) FOR IV START INTRADERMA PRN
[2021-12-26 09:26] VITALS: RESP 16; TEMP 98.6
[2021-12-26] MEDS ORDERED: LIDOCAINE 1% INJ 10MG/ML (20 ML MDV) ONE (09:33)
[2021-12-26] MEDS ORDERED: PROPOFOL 10 MG/ML 20 ML VIAL IV ONE (09:33)
--- NOTE | 2021-12-26 09:51 | P.PCN ---
Date of Procedure: 12/26/21 Procedure(s) Performed: Brief history: Patient is a pleasant 71-year-old white female scheduled for an elective upper endoscopy as well as colonoscopy as a part of evaluation of abdominal pain mostly in the epigastric area and left low quadrant area associated with nausea, change in bowel habits for the last 6 months duration. The patient severe rectal 7 pain. She lost about 10 pounds since onset of the symptoms. She is hence scheduled for an upper endoscopy as well as colonoscopy to evaluate further. Procedure performed: Esophagogastroduodenoscopy with biopsy Flexible sigmoidoscope Preoperative diagnosis: Epigastric pain and nausea Rectal pain/change in bowel habits Anesthesia: MAC Procedure: After informed consent was obtained from the patient was brought into the endoscopy unit and IV sedation was administered by anesthesia under continuous monitoring. Initially upper endoscopy was done. The Olympus GF 160 video endoscope was inserted inserted into the mouth and esophagus intubated without any difficulty and was gradually advanced into the stomach and duodenum and carefully examined. The bulb and second part of the duodenum appeared normal. Biopsies were done from the duodenum to rule out celiac disease. The scope was then withdrawn into the stomach adequately insufflated with air and upon careful examination the antrum had minimal patchy areas of erythema which was biopsied. The body, cardia and fundus appeared normal. The scope was then withdrawn into the esophagus. The GE junction was located at 40 cm to the incisors. It appeared regular with no erythema erosions or ulcerations. Rest of the esophagus appeared normal. Patient tolerated the procedure well. At this time the patient continued to remain sedation. Initial digital rectal examination was normal. Olympus CF 160 video colonoscope was then inserted into the rectum and gradually advanced to the descending colon and the prep was extremely poor that the procedure was terminated. The visualized portions of the sigmoid colon and rectum appeared normal. Retroflexion was performed in the rectum and no lesions were noted. Patient tolerated the procedure well. Impression: 1. Upper endoscopy revealed mild antral gastritis but no evidence of esophagitis or peptic ulcer disease 2. Sigmoidoscopy upto the descending colon appeared normal. Because of extremely poor prep the procedure was terminated Recommendations: Findings of this examination were discussed with the patient as well as her family. She was advised to follow with the biopsy results. She will be seen in office in 2 weeks.
[2021-12-26 10:14] VITALS: BP 113/77; PULSE 70
== END 2021-12-26 10:43 | disposition home or self-care (01) ==
LOC: ORWHC2ENDO 08:47
PROVIDERS: ATTEND Internal Medicine Gastroenterology
DX: K21.9 Gastro-esophageal reflux disease without esophagitis (principal); K29.70 Gastritis, unspecified, without bleeding; R10.9 Unspecified abdominal pain; R19.4 Change in bowel habit; K62.89 Other specified diseases of anus and rectum; Z90.49 Acquired absence of other specified parts of digestive tract
CPT/HCPCS: 81025; 88305; 43239; 45330; J2001; J2704